=== PATIENT | male | born 1990 | race Caucasian/White ===

== ENCOUNTER 2018-03-07 11:42 | Emergency (ER) | payer BC ==
--- NOTE | 2018-03-07 12:47 | ER Document Report ---
ED Medical Screen (RME) - General Chief Complaint: Dizziness Stated Complaint: DIZZY, BLOOD PRESSURE ISSUES Time Seen by Provider: 03/07/18 12:46 Mode of Arrival: Ambulatory Information source: Patient Notes: This is a 27-year-old man with a history of Marfan syndrome, status post aortic root repair in 2012 ([place]), history of sinus node dysfunction ( implantable recorder), who presents to the emergency room with "not feeling right", dizziness, slight headache. TRAVEL OUTSIDE OF THE [place] 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
[2018-03-07 12:57] LABS: ABSOLUTE EOSINOPHILS # (AUTO) 0.2 10^3/uL (0.0-0.6); ABSOLUTE LYMPHOCYTES (AUTO) 2.1 10^3/uL (0.5-4.7); ABSOLUTE MONOCYTES (AUTO) 0.7 10^3/uL (0.1-1.4); ABSOLUTE NEUT (AUTO) 7.1 10^3/uL (1.7-8.2); BASOPHILS % (AUTO) 0.3 % (0-2); EOSINOPHILS % (AUTO) 2.3 % (0-6); LYMPHOCYTES % (AUTO) 20.9 % (13-45); MEAN CORPUSCULAR HGB CONC 34.1 g/dL (32.0-36.0); MEAN CORPUSCULAR VOLUME 85 fl (80-97); MONOCYTES % (AUTO) 6.9 % (3-13); PLATELET COUNT 236 10^3/uL (150-450); RED BLOOD COUNT 5.54 10^6/uL (4.35-5.55); RED CELL DISTRIBUTION WIDTH 13.9 % (11.5-14.0); SEGMENTED NEUTROPHILS % (AUTO) 69.6 % (42-78); TOTAL CELLS COUNTED % (AUTO) 100 %; WHITE BLOOD COUNT 10.1 10^3/uL (4.0-10.5)
[2018-03-07 13:05] LABS: ALANINE AMINOTRANSFERASE 50 U/L (21-72); ALBUMIN 4.6 g/dL (3.5-5.0); ALKALINE PHOSPHATASE 70 U/L (38-126); ANION GAP 15 (5-19); ASPARTATE AMINO TRANSFERASE 38 U/L (17-59); BILIRUBIN,DIRECT 0.4 mg/dL (0.0-0.4); BILIRUBIN,TOTAL 0.8 mg/dL (0.2-1.3); BLOOD UREA NITROGEN 18 mg/dL (7-20); CALCIUM 9.4 mg/dL (8.4-10.2); CARBON DIOXIDE 26 mmol/L (22-30); CHLORIDE 105 mmol/L (98-107); CREATINE KINASE 107 U/L (55-170); GLUCOSE 93 mg/dL (75-110); POTASSIUM 4.8 mmol/L (3.6-5.0); SODIUM 145.9 mmol/L (137-145); TOTAL PROTEIN 8.3 g/dL (6.3-8.2)
[2018-03-07 13:18] LABS: TROPONIN I < 0.012 ng/mL
--- NOTE | 2018-03-07 13:37 | RADIOLOGY REPORT (SQ) ---
EXAM DESCRIPTION: CHEST 2 VIEWS COMPLETED DATE/TIME: 03/07/2018 1:24 pm REASON FOR STUDY: dizziness COMPARISON: 04/05/2012 EXAM PARAMETERS: NUMBER OF VIEWS: two views TECHNIQUE: Digital Frontal and Lateral radiographic views of the chest acquired. RADIATION DOSE: NA LIMITATIONS: none FINDINGS: LUNGS AND PLEURA: No opacities, masses or pneumothorax. No pleural effusion. MEDIASTINUM AND HILAR STRUCTURES: No masses or contour abnormalities. HEART AND VASCULAR STRUCTURES: Stable cardiomegaly. No evidence for failure. BONES: No acute findings. HARDWARE: CABG. OTHER: No other significant finding. IMPRESSION: Cardiomegaly. No acute findings. TECHNICAL DOCUMENTATION: JOB ID: [id number] [employer]- All Rights Reserved Reading location - IP/workstation name: [email or web address]
--- NOTE | 2018-03-07 13:40 | RADIOLOGY REPORT (SQ) ---
EXAM DESCRIPTION: CT HEAD WITHOUT COMPLETED DATE/TIME: 03/07/2018 1:31 pm REASON FOR STUDY: bernal, marfans, elevated BP COMPARISON: None. TECHNIQUE: Axial images acquired through the brain without intravenous contrast. Images reviewed wi th bone, brain and subdural windows. Additional sagittal and coronal reconstructions were generated. Images stored on PACS. All CT scanners at this facility use dose modulation, iterative reconstruction, and/or weight based d osing when appropriate to reduce radiation dose to as low as reasonably achievable (ALARA). [facility]: Dose Right [facility]: CareDose [facility]: Dose Right [facility]: Teradose 4D [facility]: BA Insight RADIATION DOSE: CT Rad equipment meets quality standard of care and radiation dose reduction techniq ues were employed. CTDIvol: 53.2 mGy. DLP: 1070 mGy-cm. mGy. LIMITATIONS: None. FINDINGS: VENTRICLES: Normal size and contour. CEREBRUM: No masses. No hemorrhage. No midline shift. No evidence for acute infarction. Normal gra y/white matter differentiation. No areas of low density in the white matter. CEREBELLUM: No masses. No hemorrhage. No alteration of density. No evidence for acute infarction. EXTRAAXIAL SPACES: No fluid collections. No masses. ORBITS AND GLOBE: No intra- or extraconal masses. Normal contour of globe without masses. CALVARIUM: No fracture. PARANASAL SINUSES: No fluid levels. SOFT TISSUES: No mass or hematoma. OTHER: No other significant finding. IMPRESSION: NORMAL BRAIN CT WITHOUT CONTRAST. EVIDENCE OF ACUTE STROKE: NO. COMMENT: Quality ID # [id number]: Final reports with documentation of one or more dose reduction techniques (e.g., Automated exposure control, adjustment of the mA and/or kV according to patient size, use of iterative reconstruction technique) TECHNICAL DOCUMENTATION: JOB ID: [id number] [employer]- All Rights Reserved Reading location - IP/workstation name: [email or web address]
--- NOTE | 2018-03-07 14:02 | ER Document Report ---
ED General - General Mode of Arrival: Ambulatory Information source: Patient TRAVEL OUTSIDE OF THE U.[place]. IN LAST 30 DAYS: No <JESSE CHRISTINE - Last Filed: 03/07/18 14:18> <CHICHI ANDERSON - Last Filed: 03/07/18 16:51> <SOLBHARATI - Last Filed: 03/07/18 18:02> - General Chief Complaint: Dizziness Stated Complaint: DIZZY, BLOOD PRESSURE ISSUES Time Seen by Provider: 03/07/18 12:46 Notes: 27-year-old male with Marfan's syndrome that presents to the emergency department today with complaints of elevated blood pressures. Patient states when he woke up this morning he "did not feel right". Patient states he took his blood pressure at about 0600 this morning and it was 140/102 which is not normal for him. Patient states that his blood pressures are usually about 117/ 78. Patient states when driving to school at 0630 this morning he got "very dizzy" for about 5 seconds. Patient states he has had an associated pressure behind his eyes, heat under his skin, and a headache. Patient has not missed any dosages of his blood pressure medicine. (JESSE CHRISTINE) The patient's symptoms sound very much like perhaps a viral syndrome, along with anxiety. He states his normal blood pressure is 117/78, however he does not normally check his pressure and usually only has it checked when he goes to his doctor's appointment. He would not know if his pressure fluctuates are gives during the day. His only blood pressure medication is atenolol 25 mg once daily. (CHICHI ANDERSON ) - Related Data Allergies/Adverse Reactions: lithium Allergy (Verified 03/07/18 11:43) Past Medical History - General Information source: Patient - Social History Smoking Status: Never Smoker Cigarette use (# per day): No Chew tobacco use (# tins/day): No Frequency of alcohol use: None Drug Abuse: None Lives with: Family Family History: Reviewed & Not Pertinent Patient has suicidal ideation: No Patient has homicidal ideation: No - Past Medical History Cardiac Medical History: Reports: Hx Hypertension Renal/ Medical History: Denies: Hx Peritoneal Dialysis Psychiatric Medical History: Reports: Hx Anxiety, Hx Depression Past Surgical History: Reports: Hx Abdominal Surgery, 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, Other - Aortic root - Immunizations Hx Diphtheria, Pertussis, Tetanus Vaccination: Yes <JESSE CHRISTINE - Last Filed: 03/07/18 14:18> Review of Systems - Review of Systems Constitutional: No symptoms reported EENT: No symptoms reported Cardiovascular: See HPI, Dizziness, Other - Hypertension Respiratory: No symptoms reported Gastrointestinal: No symptoms reported Genitourinary: No symptoms reported Male Genitourinary: No symptoms reported Musculoskeletal: No symptoms reported Skin: No symptoms reported Hematologic/Lymphatic: No symptoms reported Neurological/Psychological: No symptoms reported -: Yes All other systems reviewed and negative <JESSE CHRISTINE - Last Filed: 03/07/18 14:18> Physical Exam <JESSE CHRISTINE - Last Filed: 03/07/18 14:18> <CHICHI ANDERSON - Last Filed: 03/07/18 16:51> <BRYAN SOARES - Last Filed: 03/07/18 18:02> - Vital signs Vitals: Temp Pulse Resp BP Pulse Ox 98.9 F 62 16 151/96 H 95 03/07/18 11:52 03/07/18 11:52 03/07/18 11:52 03/07/18 11:52 03/07/18 11:52 - Notes Notes: Physical Exam: General: Alert, appears well. HEENT: Normocephalic. Atraumatic. PERRL. Extraocular movements intact. Oropharynx clear. No carotid bruits. Neck: Supple. Non-tender. Respiratory: No respiratory distress. Clear and equal breath sounds bilaterally. Cardiovascular: Regular rate and rhythm. Systolic murmur. Abdominal: Normal Inspection. Non-tender. No distension. Normal Bowel Sounds. Back: Non-tender. No deformity or step off. Extremities: Moves all four extremities. Upper extremities: Normal inspection. Normal ROM. Lower extremities: Normal inspection. No edema. Normal ROM. Neurological: Normal cognition. AAOx4. Normal speech. Psychological: Normal affect. Normal Mood. Skin: Warm. Dry. Normal color. (EMMETTJESSE) Course - Laboratory Result Diagrams: 03/07/18 11:25 03/07/18 11:25 <JESSE CHRISTINE - Last Filed: 03/07/18 14:18> - Laboratory Result Diagrams: 03/07/18 11:25 03/07/18 11:25 - Diagnostic Test Radiology reviewed: Reports reviewed - Chest x-ray and CT scan of the head done from triage show stable cardiomegaly, no other acute changes. - Transfer of Care Care transferred to following provider: Dr. Soares <CHICHI ANDERSON - Last Filed: 03/07/18 16:51> - Laboratory Result Diagrams: 03/07/18 11:25 03/07/18 11:25 <BRYAN SOARES - Last Filed: 03/07/18 18:02> - Re-evaluation Re-evalutation: Head CT 03/07/18 12:47 IMPRESSION: NORMAL BRAIN CT WITHOUT CONTRAST. EVIDENCE OF ACUTE STROKE: NO. Chest X-Ray 03/07/18 12:48 IMPRESSION: Cardiomegaly. No acute findings. Head MRI 03/07/18 14:52 IMPRESSION: NORMAL MRI OF THE BRAIN WITHOUT INTRAVENOUS GADOLINIUM CONTRAST. EVIDENCE OF ACUTE STROKE: NO. 03/07/18 18:01 Patient received an signout by Dr. Anderson. MRI of the head pending upon sign out. Instructions were if MRI were no more patient should be discharged home. 03/07/18 18:01 (BRYAN SOARES) - Vital Signs Vital signs: Temp Pulse Resp BP Pulse Ox 98.9 F 62 16 151/96 H 100 03/07/18 11:52 03/07/18 11:52 03/07/18 11:52 03/07/18 11:52 03/07/18 15:32 - Laboratory Laboratory results interpreted by me: 03/07/18 11:25 Sodium 145.9 H Total Protein 8.3 H - Transfer of Care Notes: 03/07/18 16:53 Patient is pending MRI of the head. (CHICHI ANDERSON) Discharge <JESSE CHRISTINE - Last Filed: 03/07/18 14:18> <CHICHI ANDERSON - Last Filed: 03/07/18 16:51> <BRYAN SOARES - Last Filed: 03/07/18 18:02> - Discharge Clinical Impression: Episode of dizziness, Elevated blood pressure reading, Marfan syndrome Condition: Stable Disposition: HOME, SELF-CARE Instructions: Dizziness ([facility]) Additional Instructions: The CAT scan and MRI performed of your head were normal today. All of your lab work was also normal. Follow up with your physician tomorrow for further care or return to the ED IMMEDIATELY if symptoms worsen or new concerns occur. If you cannot afford to follow up with your primary care physician a list of low cost clinics have been provided at the end of your discharge papers as well. Forms: Elevated Blood Pressure Referrals: NASEEM RAMIREZ MD [Primary Care Provider] - Follow up as needed Scribe Attestation: 03/07/18 14:16 I personally performed the services described in the documentation, reviewed and edited the documentation which was dictated to the scribe in my presence, and it accurately records my words and actions. (CHICHI ANDERSON) Scribe Documentation - Scribe Written by Moni:: oMni Gallegos, 03/07/2018 1421 acting as scribe for :: Florinda <JESSE CHRISTINE - Last Filed: 03/07/18 14:18>
[2018-03-07] MEDS ORDERED: HYDRALAZINE HCL INJ/PF 20 MG/1 ML SDV IV ONE (14:52)
--- NOTE | 2018-03-07 17:52 | RADIOLOGY REPORT (SQ) ---
EXAM DESCRIPTION: MRI HEAD WITHOUT COMPLETED DATE/TIME: 03/07/2018 5:30 pm REASON FOR STUDY: Marfan's,aortic root repair,dizziness,BP elevation COMPARISON: Brain CT scan dated 03/07/2018 TECHNIQUE: Multiplanar imaging includes non-contrasted T1, T2, FLAIR, and diffusion with ADC map seq uences. Images stored on PACS. LIMITATIONS: None. FINDINGS: ANATOMY: No anomalies. Normal vascular flow voids. Pituitary fossa normal. CSF SPACES: Normal in size and contour. No hemorrhage. CEREBRUM: Sulci and gyri normal in size and contour. Normal white matter signal on FLAIR imaging. No evidence of hemorrhage, mass, or extraaxial fluid collection. POSTERIOR FOSSA: No signal alteration. No hemorrhage. No edema, masses or mass effect. Internal sakina tory canals, cerebello-pontine angles, mastoids normal. DIFFUSION IMAGING: Negative for acute or sub-acute infarction. ORBITS: No masses. Globes normal. PARANASAL SINUSES: No fluid levels. Mucosa normal. OTHER: No other significant finding. IMPRESSION: NORMAL MRI OF THE BRAIN WITHOUT INTRAVENOUS GADOLINIUM CONTRAST. EVIDENCE OF ACUTE STROKE: NO. TECHNICAL DOCUMENTATION: JOB ID: [id number] [employer]- All Rights Reserved Reading location - IP/workstation name: [email or web address]
[2018-03-07 19:34] VITALS: BP 125/79
--- NOTE | 2018-03-07 22:17 | EKG REPORT ---
SEVERITY:- ABNORMAL ECG - SINUS RHYTHM FIRST DEGREE AV BLOCK : Confirmed by: Julian Shannon 07-Mar-2018 22:17:03
== END 2018-03-07 19:34 | disposition home or self-care (01) ==
LOC: ER 11:42
DX: R42 Dizziness and giddiness (principal); I10 Essential (primary) hypertension; Q87.40 Marfan syndrome, unspecified
CPT/HCPCS: 93005; 99285; 96374; 36415; 82553; 82550; 85025; 80053; 84484; 70551; 71046; 70450; 93010; J0360

== ENCOUNTER 2018-06-10 03:39 | Emergency (ER) | payer BC ==
[2018-06-10] MEDS ORDERED: NORMAL SALINE 1000 ML 1,000 ML IV ONE (04:23)
[2018-06-10] MEDS ORDERED: DIAZEPAM INJ 10 MG/2 ML DISP.SYRIN IV ONE ×2 (04:23→04:28)
--- NOTE | 2018-06-10 04:29 | ER Document Report ---
ED General - General TRAVEL OUTSIDE OF THE [place] IN LAST 30 DAYS: No <RICHARD SEGALKODY Hartley - Last Filed: 06/10/18 05:32> <DAYDAY DE LEÓN - Last Filed: 06/10/18 05:58> - General Chief Complaint: Chest Pain Stated Complaint: CHEST PAIN, NECK BACK ARM PAIN Time Seen by Provider: 06/10/18 03:59 Notes: Patient is a 27-year-old male who presents to the emergency department with chest pressure for the past 3 days. He states he feels blood is pushing through his aorta, causing some discomfort. He has Marfan's syndrome and was diagnosed when he was 8 years old. He states he had taken his blood pressure at home and had multiple high readings of 140-150 systolic tonight. His normal systolic readings are in the 120s. He takes atenolol daily for his blood pressure. He was having some numbness in his left arm and his left neck. He also takes Valium for his anxiety. In 2011 he had an aortic root repair with implantable recorder for his sinus node dysfunction. When he was 10 years old he had a pectus excavatum. He sees Dr. Ledbetter at [facility] for his Marfan's syndrome. 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 Denies recent unintentional weight loss. Denies fever, chills, or sweats. EENT: Denies eye, ear, throat, or mouth pain, discharge, or symptoms. Denies nasal or sinus congestion. CARDIOVASCULAR: See HPI RESPIRATORY: Denies shortness of breath, cough, congestion, difficulty breathing , or wheezing. GASTROINTESTINAL: Denies nausea, vomiting, and diarrhea. Denies abdominal pain. Denies constipation. GENITOURINARY: Denies difficulty urinating, burning, blood in urine, urgency or frequency. MUSCULOSKELETAL: See HPI SKIN: Denies rash, itchiness, or lesions HEMATOLOGIC : Denies easy bruising or bleeding. LYMPHATIC: Denies swollen, painful, enlarged glands. NEUROLOGICAL: See HPI PSYCHIATRIC: Denies stress, alteration in sleep patterns, or depression. All other systems reviewed and negative. (JAJA SEGAL) - Vital signs Vitals: Temp Pulse Resp BP Pulse Ox 97.5 F 72 16 140/93 H 97 06/10/18 03:50 06/10/18 03:50 06/10/18 03:50 06/10/18 03:50 06/10/18 03:50 Course - Laboratory Result Diagrams: 06/10/18 04:14 06/10/18 04:14 <JAJA SEGAL - Last Filed: 06/10/18 05:32> - Laboratory Result Diagrams: 06/10/18 04:14 06/10/18 04:14 <DAYDAY DE LEÓN - Last Filed: 06/10/18 05:58> - Re-evaluation Re-evalutation: 06/10/18 04:30 Dr. De León accompanied me to bedside to evaluate the patient. He will be sent for CTA of the chest, abdomen, and pelvis. He states he is anxious and he normally takes Valium at home. Basic labs have been ordered. (JAJA SEGAL) 06/10/18 04:53 She was initially seen by the physician's acute care certified nursing assistant. The form the patient's Marfan syndrome patient therefore immediately to the room. Patient complains of a "discomfort that goes from his chest and into his left shoulder blade. He has some pain going from his neck down into his left arm. He says that he even feels as if there is a slight change in coronation of the left arm. Previous surgery includes a sleeve that was placed over the aortic root. He does not think he has any type of valvular replacement. He does have a loud murmur on exam. He does have good strength in both upper extremities. Good distal sensation. Normal finger to nose to finger testing. He is followed at [facility] for his Marfan syndrome and previous aortic surgery. No history of dissection. Informed him that would be immediately performing a CTA of the chest abdomen pelvis. I will obtain a CT scan of the head without contrast being that the patient feels as if there is just slight desquamation of left upper extremity. I did contact technical service representative immediately informed him that I want the scan immediately without waiting for lab results. I did look through his previous records and noticed that his kidney function was normal as of just 2 months ago. Dictation of this chart was performed using voice recognition software; therefore, there may be some unintended grammatical errors. 06/10/18 05:[address] scan does not show any concerning findings at this time. I am still concerned with his symptoms and his history of Marfan syndrome and therefore I have called [facility] and asked to speak with the cardiothoracic surgeon covering for Dr. Steel. They said they will call me back. 06/10/18 05:[address] Baxter who is a supplier specialist covering for the cardiology service. He agrees to accept the patient on behalf of Dr. Boy Us. Patient remained stable. He still has the same pain but is not worsening. Dr. Baxter says to treat his blood pressure if it systolically it goes above 180. (DAYDAY DE LEÓN) - Vital Signs Vital signs: Temp Pulse Resp BP Pulse Ox 97.5 F 72 16 140/93 H 97 06/10/18 03:50 06/10/18 03:50 06/10/18 03:50 06/10/18 03:50 06/10/18 03:50 - Laboratory Laboratory results interpreted by me: 06/10/18 04:14 RDW 14.1 H Discharge <JAJA SEGAL - Last Filed: 06/10/18 05:32> <DAYDAY DE LEÓN - Last Filed: 06/10/18 05:58> - Discharge Clinical Impression: Left arm pain, Marfan syndrome Chest pain Qualifiers: Chest pain type: unspecified Qualified Code(s): R07.9 - Chest pain, unspecified Condition: Stable Disposition: [facility] Referrals: NASEEM RAMIREZ MD [Primary Care Provider] - Follow up as needed
[2018-06-10 04:30] LABS: ABSOLUTE EOSINOPHILS # (AUTO) 0.2 10^3/uL (0.0-0.6); ABSOLUTE LYMPHOCYTES (AUTO) 2.8 10^3/uL (0.5-4.7); ABSOLUTE MONOCYTES (AUTO) 0.6 10^3/uL (0.1-1.4); ABSOLUTE NEUT (AUTO) 5.8 10^3/uL (1.7-8.2); BASOPHILS % (AUTO) 0.4 % (0-2); EOSINOPHILS % (AUTO) 2.2 % (0-6); HEMATOCRIT 44.5 % (37.9-51.0); HEMOGLOBIN 15.4 g/dL (13.5-17.0); LYMPHOCYTES % (AUTO) 29.6 % (13-45); MEAN CORPUSCULAR HEMOGLOBIN 28.8 pg (27.0-33.4); MEAN CORPUSCULAR HGB CONC 34.6 g/dL (32.0-36.0); MEAN CORPUSCULAR VOLUME 83 fl (80-97); MONOCYTES % (AUTO) 6.5 % (3-13); PLATELET COUNT 235 10^3/uL (150-450); RED BLOOD COUNT 5.34 10^6/uL (4.35-5.55); RED CELL DISTRIBUTION WIDTH 14.1 % (11.5-14.0); SEGMENTED NEUTROPHILS % (AUTO) 61.3 % (42-78); TOTAL CELLS COUNTED % (AUTO) 100 %; WHITE BLOOD COUNT 9.4 10^3/uL (4.0-10.5)
[2018-06-10 04:55] LABS: ANION GAP 14 (5-19); BLOOD UREA NITROGEN 14 mg/dL (7-20); CALCIUM 9.5 mg/dL (8.4-10.2); CARBON DIOXIDE 26 mmol/L (22-30); CHLORIDE 103 mmol/L (98-107); GLUCOSE 86 mg/dL (75-110); SODIUM 142.5 mmol/L (137-145)
--- NOTE | 2018-06-10 05:10 | RADIOLOGY REPORT (SQ) ---
EXAM DESCRIPTION: CT HEAD WITHOUT IV CONTRAST COMPLETED DATE/TME: 06/10/2018 04:19 CLINICAL HISTORY: 27 years Male, weakness COMPARISON:03/07/2018 TECHNIQUE: No contrast. Coronal and sagittal reformat. This exam was performed according to our departmental dose-optimization program, which includes automated exposure control, adjustment of the mA and/or kV according to patient size and/or use of iterative reconstruction technique. FINDINGS: No hemorrhage or infarct. No mass, mass effect, or midline shift. Mild bilateral maxillary and moderate bilateral ethmoid mucous-mucosal thickening. Brain and extra-axial structures appear otherwise intact. IMPRESSION: No acute findings. Mild chronic pansinusitis.
--- NOTE | 2018-06-10 05:18 | RADIOLOGY REPORT (SQ) ---
EXAM DESCRIPTION: CT ABDOMEN PELVIS WITHOUT THEN WITH IV CONTRAST, CT CHEST ANGIOGRAPHY WITHOUT THEN WITH IV CONTRAST COMPLETED DATE/TME: 06/10/2018 04:21 (accession [id number]), 06/10/2018 04:20 (accession [id number]) CLINICAL HISTORY: 27 years Male, Marfan's syndrome Comparison:08/03/2015 Technique: Pre and post IV contrast. Coronal and sagittal reformat. This exam was performed according to our departmental dose-optimization program, which includes automated exposure control, adjustment of the mA and/or kV according to patient size and/or use of iterative reconstruction technique. [facility]: Dose Right [facility]: CareDose [facility]: Dose Right [facility]: Teradose 4D [facility]: [employer] LIMITATIONS: None Findings: Vascular system appears intact. 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 Else, evidence of dissection, or occlusion. No vasculitides. No significant thrombus/embolus. No active hemorrhage/hematoma. Sternotomy. Atelectasis/scar. Hepatic steatosis. Normal appendix. Low attenuation diffuse large bowel wall thickening suggestive of prior infectious/inflammatory insult. , Report only. Inferior neck, axillae, mediastinum, lungs, airway, heart, liver, gallbladder, pancreas, spleen, adrenals, renal system, gastrointestinal tract, pelvic organs, lymphatics, vasculature, and musculoskeleton appear otherwise unremarkable. Impression: No acute findings. 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 Else, unremarkable CTA of the chest abdomen and pelvis.
--- NOTE | 2018-06-10 05:18 | RADIOLOGY REPORT (SQ) ---
EXAM DESCRIPTION: CT ABDOMEN PELVIS WITHOUT THEN WITH IV CONTRAST, CT CHEST ANGIOGRAPHY WITHOUT THEN WITH IV CONTRAST COMPLETED DATE/TME: 06/10/2018 04:21 (accession [id number]), 06/10/2018 04:20 (accession [id number]) CLINICAL HISTORY: 27 years Male, Marfan's syndrome Comparison:08/03/2015 Technique: Pre and post IV contrast. Coronal and sagittal reformat. This exam was performed according to our departmental dose-optimization program, which includes automated exposure control, adjustment of the mA and/or kV according to patient size and/or use of iterative reconstruction technique. [facility]: Dose Right [facility]: CareDose [facility]: Dose Right [facility]: Teradose 4D [facility]: [employer] LIMITATIONS: None Findings: Vascular system appears intact. 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 Else, evidence of dissection, or occlusion. No vasculitides. No significant thrombus/embolus. No active hemorrhage/hematoma. Sternotomy. Atelectasis/scar. Hepatic steatosis. Normal appendix. Low attenuation diffuse large bowel wall thickening suggestive of prior infectious/inflammatory insult. , Report only. Inferior neck, axillae, mediastinum, lungs, airway, heart, liver, gallbladder, pancreas, spleen, adrenals, renal system, gastrointestinal tract, pelvic organs, lymphatics, vasculature, and musculoskeleton appear otherwise unremarkable. Impression: No acute findings. 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 Else, unremarkable CTA of the chest abdomen and pelvis.
[2018-06-10 08:52] VITALS: BP 126/78
--- NOTE | 2018-06-10 13:59 | EKG REPORT ---
SEVERITY:- ABNORMAL ECG - SINUS RHYTHM FIRST DEGREE AV BLOCK : Confirmed by: Rena Gonzalez MD 10-Jun-2018 13:58:59
== END 2018-06-10 08:10 | disposition short-term general hospital (02) ==
LOC: ER 03:39
DX: Q87.40 Marfan syndrome, unspecified (principal); R07.9 Chest pain, unspecified; M54.2 Cervicalgia; M79.602 Pain in left arm; M54.9 Dorsalgia, unspecified; R20.0 Anesthesia of skin; M25.512 Pain in left shoulder; I10 Essential (primary) hypertension; Z79.899 Other long term (current) drug therapy
CPT/HCPCS: 93005; 99285; 96361; 96374; 36415; 85025; 80048; 84484; 70450; 71275; 74174; 93010; J3360; J7030